=== PATIENT | female | born 1965 | race Caucasian/White ===

== ENCOUNTER → 2016-09-09 | Outpatient (CLI) | payer BC ==
--- NOTE | 2016-09-10 09:23 | US ---
EXAM DESCRIPTION: Diagnostic Mammo,Bilateral (accession [id number]), Breast,Bilateral (accession [id number]) CLINICAL HISTORY: 51 years, Female, patient complains of palpable areas upper outer aspect of both breasts with painful symptoms associated. COMPARISON: None TECHNIQUE: CC and MLO digital mammograms with computer aided detection. FINDINGS: The breast parenchyma is heterogeneously dense which may decrease the sensitivity of mammography. There is no dominant mass nor any suspicious microcalcifications. Benign microcalcifications are present. Real-time ultrasound of both breasts is performed by me in the areas of clinical concern upper outer quadrant of each breast. Dense breast parenchyma is present. Several tiny cysts are noted on both sides. There is no solid or worrisome abnormality detected. IMPRESSION: BI-RADS 2: BENIGN FOLLOW-UP: Routine mammography screening. Electronically signed by: Roman Easley MD 09/10/2016 9:22 AM CDT
== END | disposition home or self-care (01) ==
LOC: MAMMO 09:49
PROVIDERS: ATTEND Nurse Practitioner Family
DX: N64.4 Mastodynia (principal)

== ENCOUNTER 2019-04-13 17:44 | Emergency (ER) | payer BC ==
--- NOTE | 2019-04-13 18:02 | ED.PDOC ---
History of Present Illness - General Chief Complaint: Trauma Time Seen by Provider: 04/13/19 17:57 Source: patient Exam Limitations: no limitations - History of Present Illness Initial Comments: 53 yo F who is otherwise healthy presents for lower back pain onset yesterday after sustaining a fall, reports pain slowly worsened today and went to the chiropractor, he tried to manipulate her however she was in too much pain, he told her that she likely had a herniated disc and referred her to the ED. Pt denies any pain or injury elsewhere. Denies f/c, CP, SOB, abd pain, n/v/d, flank pain, urinary sx, weakness, numbness, saddle anesthesia, urinary or bowel incontinence. Allergies/Adverse Reactions: Allergies NO KNOWN ALLERGY Allergy (Unverified 12/03/12 00:42) Home Medications: Ambulatory Orders Methylprednisolone [Medrol Dose Mike] 4 mg PO DAILY 6 Days #21 tab 09/22/17 Olopatadine HCl [Patanol] 1 drop OP Q4HR 3 Days #5 ibeth 09/22/17 Acetamin W/Cod #3 Tab [Tylenol w/CODEINE #3] 1 ea PO Q6H PRN #12 tab 04/13/19 Methocarbamol [Robaxin] 500 mg PO Q8H PRN #16 tab 04/13/19 Review of Systems - Review of Systems Constitutional: Denies: chills, fever EENTM: Denies: blurred vision, double vision Respiratory: Denies: cough, short of breath Cardiology: Denies: chest pain, edema, palpitations Gastrointestinal/Abdominal: Denies: abdominal pain, diarrhea, nausea, vomiting Genitourinary: Denies: dysuria, frequency, hematuria Musculoskeletal: States: back pain. Denies: neck pain Skin: Denies: change in color, lesions, rash Neurological: Denies: headache, numbness, weakness Endocrine: Denies: increased thirst, increased urine Hematologic/Lymphatic: Denies: easy bleeding, easy bruising Past Medical History (General) - Patient Medical History Hx Asthma: Yes - Vaccination History Hx Influenza Vaccination: No Family Medical History - Family History Father Family History: Unknown Physical Exam - Physical Exam General Appearance: Alert, Well Developed, Well Nourished, Other - Appears in pain Neck: non-tender, full range of motion, supple, normal inspection Respiratory: chest non-tender, lungs clear, normal breath sounds, no respiratory distress, no accessory muscle use Cardiovascular/Chest: normal peripheral pulses, regular rate, rhythm, no edema, no gallop, no JVD, no murmur Peripheral Pulses: radial,right: 2+, radial,left: 2+ Gastrointestinal/Abdominal: normal bowel sounds, non tender, soft, no organomegaly, no pulsatile mass Back Exam: normal inspection, no CVA tenderness, no vertebral tenderness Extremity: normal range of motion, non-tender, normal inspection, no pedal edema, no calf tenderness Neurologic: video games storywriter II-XII nml as tested, no motor/sensory deficits, alert, normal mood/affect, oriented x 3 DTR: 2+: Patellar, left, Patellar, right Skin Exam: normal color, warm/dry Lymphatic: no adenopathy Progress - Progress Progress: I have explained and reviewed all results with the pt. Pt pain is controlled when not moving, pt still has pain with movement but states she would like to go home and try po medication for pain control. Offered admission, pt declines. I explained that emergent conditions may arise and to return to the ER for new, worsening, or any persistent conditions including but not limited to weakness, numbness, incontinence, urinary retention. I've explained the importance of f/u for recheck. All questions and concerns addressed at this time. Pt understands and agrees with plan. Pt well appearing, NAD, is stable for discharge. Lakisha Cuellar MD Emergency Medicine Physician Billing Number [id number] - Results/Orders Results/Orders: Laboratory Results - last 24 hr 04/13/19 04/13/19 04/13/19 18:10 18:10 18:45 WBC 12.5 H RBC 4.23 Hgb 12.4 Hct 37.0 MCV 87.3 MCH 29.4 MCHC 33.6 RDW 14.4 Plt Count 279 MPV 9.0 Absolute Neuts (auto) 8.90 H Absolute Lymphs (auto) 2.70 Absolute Monos (auto) 0.70 Absolute Eos (auto) 0.10 Absolute Basos (auto) 0.10 Neutrophils % 71.2 Lymphocytes % 21.4 Monocytes % 5.9 Eosinophils % 1.0 Basophils % 0.5 Sodium 137 Potassium 3.6 Chloride 105 Carbon Dioxide 20 L Anion Gap 15.6 BUN 13 Creatinine 0.76 BUN/Creatinine Ratio 17.1 Random Glucose 106 H Serum Osmolality 274.4 L Calcium 9.3 Total Bilirubin 0.3 AST 25 ALT 21 Alkaline Phosphatase 87 Serum Total Protein 7.6 Albumin 4.3 Globulin 3.3 Albumin/Globulin Ratio 1.3 Urine Color Urine Appearance Urine pH Ur Specific [place] Urine Protein Urine Glucose (UA) Urine Ketones Urine Blood Urine Nitrite Urine Bilirubin Urine Urobilinogen Ur Leukocyte Esterase Urine RBC Urine WBC Ur Epithelial Cells Urine Bacteria Urine HCG, Qual Negative 04/13/19 18:45 WBC RBC Hgb Hct MCV MCH MCHC RDW Plt Count MPV Absolute Neuts (auto) Absolute Lymphs (auto) Absolute Monos (auto) Absolute Eos (auto) Absolute Basos (auto) Neutrophils % Lymphocytes % Monocytes % Eosinophils % Basophils % Sodium Potassium Chloride Carbon Dioxide Anion Gap BUN Creatinine BUN/Creatinine Ratio Random Glucose Serum Osmolality Calcium Total Bilirubin AST ALT Alkaline Phosphatase Serum Total Protein Albumin Globulin Albumin/Globulin Ratio Urine Color Yellow Urine Appearance Clear Urine pH 6.5 Ur Specific [place] 1.010 Urine Protein Negative Urine Glucose (UA) Negative Urine Ketones Negative Urine Blood Negative Urine Nitrite Negative Urine Bilirubin Negative Urine Urobilinogen 0.2 Ur Leukocyte Esterase Negative Urine RBC 0-1 Urine WBC 0-1 Ur Epithelial Cells 0-1 Urine Bacteria 0 Urine HCG, Qual CT L spine: Exam type: CT lumbar spine without contrast. Clinical history: Pain. COMPARISON: None. TECHNIQUE: The CT scan was done using contiguous axial 2.5 mm sections through the lumbar spine with multiplanar reconstructions. This exam was performed according to our departmental dose-optimization program, which includes automated exposure control, adjustment of the mA and/or kV according to patient size and/or use of iterative reconstruction technique. Results: There is no fracture, subluxation, or compression deformity. No focal bone lesion is identified. At L1-2, L2-3, and L3-4 the intervertebral discs appear normal. At L4-5 there is a mild diffuse disc bulge and a posterior central disc protrusion, no significant central canal stenosis, and no significant foraminal narrowing. At L5-S1 the disc is flattened and degenerated with a diffuse moderate disc bu lge, no significant central stenosis, and no significant foraminal narrowing. IMPRESSION: No fracture or acute process. Mild to moderate degenerative changes at the L4-5 and L5-S1 levels. Electronically signed by: Gareth Philip MD 04/13/2019 6:53 PM THEOLOGY PROFESSOR Vital Signs - 24 hr 04/13/19 04/13/19 18:00 19:29 Temperature 98.8 F Pulse Rate [ 72 94 H left brachial] Respiratory 24 16 Rate Blood Pressure 117/75 110/66 [left brachial] O2 Sat by Pulse 99 97 Oximetry Departure - Departure Clinical Impression: Lower back pain Qualifiers: Chronicity: acute Back pain laterality: bilateral Sciatica presence: without sciatica Qualified Code(s): M54.5 - Low back pain Fall Qualifiers: Encounter type: initial encounter Qualified Code(s): W19.XXXA - Unspecified fall, initial encounter Time of Disposition: 19:32 Disposition: Discharge to Home or Self Care Health Concerns: Condition: stable Departure Forms: ED Discharge - Pt. Copy, Patient Portal Self Enrollment Instructions: Low Back Pain (DC) Referrals: GARETH PUENTE IV, RESEARCH STUDY ASSISTANT [Primary Care Provider] - 1-5 Days Prescriptions: Acetamin W/Cod #3 Tab [Tylenol w/CODEINE #3] 1 ea PO Q6H PRN #12 tab PRN Reason: Pain Methocarbamol [Robaxin] 500 mg PO Q8H PRN #16 tab PRN Reason: Muscle Spasms Home Medications: Ambulatory Orders Methylprednisolone [Medrol Dose Mike] 4 mg PO DAILY 6 Days #21 tab 09/22/17 Olopatadine HCl [Patanol] 1 drop OP Q4HR 3 Days #5 ibeth 09/22/17 Acetamin W/Cod #3 Tab [Tylenol w/CODEINE #3] 1 ea PO Q6H PRN #12 tab 04/13/19 Methocarbamol [Robaxin] 500 mg PO Q8H PRN #16 tab 04/13/19 Comments: Follow up: [facility] As needed, if symptoms worsen
[2019-04-13 18:04] VITALS: TEMP 98.8
[2019-04-13] MEDS: diazePAM 5 MG TAB PO ONE (18:06)
[2019-04-13] MEDS: HYDROcodone 10MG/APAP 325MG 1 EA TAB PO ONE (18:06)
--- NOTE | 2019-04-13 18:54 | CT ---
Exam type: CT lumbar spine without contrast. Clinical history: Pain. COMPARISON: None. TECHNIQUE: The CT scan was done using contiguous axial 2.5 mm sections through the lumbar spine with multiplanar reconstructions. This exam was performed according to our departmental dose-optimization program, which includes automated exposure control, adjustment of the mA and/or kV according to patient size and/or use of iterative reconstruction technique. Results: There is no fracture, subluxation, or compression deformity. No focal bone lesion is identified. At L1-2, L2-3, and L3-4 the intervertebral discs appear normal. At L4-5 there is a mild diffuse disc bulge and a posterior central disc protrusion, no significant central canal stenosis, and no significant foraminal narrowing. At L5-S1 the disc is flattened and degenerated with a diffuse moderate disc bulge, no significant central stenosis, and no significant foraminal narrowing. IMPRESSION: No fracture or acute process. Mild to moderate degenerative changes at the L4-5 and L5-S1 levels. Electronically signed by: Gareth Philip MD 04/13/2019 6:53 PM [facility]
[2019-04-13 19:30] VITALS: BP 110/66; O2SAT 97
== END 2019-04-13 19:40 | disposition home or self-care (01) ==
LOC: ER 17:44
DX: M54.5 Low back pain (principal); M51.27 Other intervertebral disc displacement, lumbosacral region; M47.817 Spondylosis without myelopathy or radiculopathy, lumbosacral region

== ENCOUNTER → 2020-01-18 | Outpatient (CLI) | payer BC | END | disposition home or self-care (01) | LOC: LAB.O 13:27 | PROVIDERS: ATTEND Surgery | DX: L98.8 Other specified disorders of the skin and subcutaneous tissue (principal) ==